=== PATIENT | female | born 2000 | race African-American/Black ===

== ENCOUNTER 2020-03-20 13:25 | Emergency (ER) | payer MEDICAID, OTHER ==
[~2020-03-20] VITALS: Ht 167.6 cm; Wt 88.5 kg
[2020-03-20 15:05] VITALS: BP 158/91
== END 2020-03-20 16:53 | disposition home or self-care (01) ==
LOC: ER 13:25
DX: M25.572 Pain in left ankle and joints of left foot (principal); M54.9 Dorsalgia, unspecified; Z32.02 Encounter for pregnancy test, result negative; V43.52XA Car driver injured in collision with other type car in traffic accident, initial encounter; Y93.89 Activity, other specified; Y92.89 Other specified places as the place of occurrence of the external cause; Y99.8 Other external cause status
CPT/HCPCS: 72040; 72100; 81025